=== PATIENT | female | born 1995 | race Caucasian/White ===

== ENCOUNTER → 2018-11-04 | Outpatient (CLI) | payer BC ==
--- NOTE | 2018-11-04 14:08 | Diagnostic Imaging Report ---
INDICATION: survey. TECHNIQUE: Multiple real-time grayscale images were obtained over the gravid uterus. COMPARISON: None. FINDINGS: Single live fetus in a cephalic presentation. Placenta is anterior. Amniotic fluid volume is normal. heart rate was recorded at 143 beats per minute. Cervical length is approximately 3.5 cm. survey demonstrates kidneys, bladder and stomach to be unremarkable. brain is unremarkable. There is a four-chamber heart. There is a three-vessel cord with normal insertion. spine is unremarkable. Biometrical measurements are as follows: Biparietal 4.54 cm, age 19 weeks 6 days. Head circumference 17.81 cm, age 20 weeks 2 days. Abdominal circumference 16.82 cm, age 21 weeks 6 days. Femur length 3.46 cm, age 21 weeks 0 days. Sonographic estimate age: 20 weeks 6 days. Sonographic estimated date of delivery: 03/18/2019. Estimated Weight: 408 gm (+/- 60 gm). LMP percentile: 86%. heart rate: 143 beats per minute. number: 1 of 1. IMPRESSION: Single live IUP approximately 21 weeks gestational age. The estimated date of confinement sonographically is 03/18/2019. Dictated by: Dictated on workstation # [id number]
== END ==
LOC: RAD 12:52
PROVIDERS: ATTEND Obstetrics & Gynecology
DX: Z36.89 Encounter for other specified antenatal screening (principal); Z3A.21 21 weeks gestation of pregnancy
CPT/HCPCS: 76805

== ENCOUNTER 2018-12-09 20:48 | Outpatient (CLI) | payer BC ==
[~2018-12-09] VITALS: Ht 160 cm; Wt 76.2 kg
--- NOTE | 2018-12-09 21:00 | NUR ---
BRADEN HERNANDEZ presented to unit via ambulation from ED, with c/o CRAMPING, TROUBLE GOING TO RESTROOM. BRADEN HERNANDEZ weighed, gowned, voided, and to bed. EFHM and TOCO applied, VS taken. BRADEN HERNANDEZ oriented to bed controls, call light, TV, heat, and A/C controls.
[2018-12-09 21:15] VITALS: BP 118/59
[2018-12-09 21:22] LABS: BILIRUBIN,URINE NEGATIVE (NEGATIVE); CLARITY,URINE VERY CLOUDY; COLOR,URINE YELLOW; GLUCOSE, URINE (UA) NEGATIVE (NEGATIVE); KETONES,URINE NEGATIVE (NEGATIVE); LEUKOCYTE ESTERASE ,URINE 1+ (NEGATIVE); NITRITE,URINE NEGATIVE (NEGATIVE); PH,URINE 7 (5-9); PROTEIN,URINE NEGATIVE (NEGATIVE); UROBILINOGEN,URINE 1 MG/DL (NORMAL)
[2018-12-09 21:37] LABS: AMORPHOUS SEDIMENT,UR LARGE AMOR PHOSPHATE /LPF; BACTERIA,URINE TRACE /HPF; WBC,URINE 0-2 /HPF
[2018-12-09] MEDS ORDERED: FLEET ENEMA ADULT 1 EA BTL PR ONE (21:45)
[2018-12-09] MEDS ORDERED: MAGN400O7 PO (22:05)
[2018-12-09] MEDS ORDERED: PREN-142 PO (22:05)
--- NOTE | 2018-12-09 22:15 | NUR ---
Enema given per order. Pt tolerated well. Pt up to toilet per request. Denies needing anything. Privacy offered.
--- NOTE | 2018-12-09 22:40 | NUR ---
Pt up to bathroom, continuing to try to have BM. States was "able to go a little, but it still feels like it's right there." Offered more privacy. Encouraged pt to call if needing anything.
--- NOTE | 2018-12-09 23:20 | NUR ---
Pt states feels better, was "able to get a lot out." Requesting to go home at time.
--- NOTE | 2018-12-09 23:25 | NUR ---
Discharge instructions discussed with patient. No questions or concerns voiced. Signature sheet signed, placed on chart. Pt ambulating off unit to private vehicle. No signs of distress noted.
--- NOTE | 2018-12-12 09:51 | Physician Query-Final Dx ---
JORDAN CARRILLO 12/12/18 0951: Clinic Account Progress/Dx Physician Query: please give a diagnosis and include the weeks of gestation thank you Date of Service Dec 09, 2018 at 20:48 ROSA ALCANTAR DO 12/16/18 1634: Clinic Account Progress/Dx Physician Query: Please give diagnosis ( with constipation) DIAGNOSIS: Diagnosis with constipation Progress Note: Ms. Scherer was seen as an outpatient--not physically seen by me. JORDAN Montano Dec 12, 2018 09:51 ROSA ALCANTAR DO Dec 16, 2018 16:34
== END 2018-12-09 23:25 | disposition home or self-care (01) ==
LOC: WSo 20:48 → LDRP 20:48 → WSo 23:25
PROVIDERS: ATTEND Obstetrics & Gynecology
DX: O99.619 Diseases of the digestive system complicating pregnancy, unspecified trimester (principal); K59.00 Constipation, unspecified
CPT/HCPCS: 81000; 99213

== ENCOUNTER 2019-02-28 05:57 | Outpatient (CLI) | payer BC ==
[~2019-02-28] VITALS: Ht 160 cm; Wt 79.8 kg
[~2019-02-28 05:57] MED LIST: MAGN400O7 PO; PREN-142 PO
--- NOTE | 2019-02-28 06:07 | NUR ---
BRADEN HERNANDZE presented to unit via WC from ED, accompanied by staff , with c/o PRESSURE,PT STS WATER BROKE. BRADEN HERNANDEZ weighed, gowned, voided, and to bed. EFHM and TOCO applied, VS taken. BRADEN HERNANDEZ oriented to bed controls, call light, TV, heat, and A/C controls.
[2019-02-28 06:23] VITALS: BP 121/76
--- NOTE | 2019-02-28 06:25 | NUR ---
SVE, 1 cm thick and negative amnio test. Pt denies pain and states she woke dreaming she was peeing and then found her bed wet. Pt states she didnt think the bed smelled of urine and came to hospital to check for SROM.
--- NOTE | 2019-02-28 06:32 | NUR ---
Dr Vizcaino called and report given, pt may discharge after reactive NST.
--- NOTE | 2019-02-28 06:50 | NUR ---
Pt. discharged. Up to change into own clothes. Pt. walks downstairs with no assist needed. No s/s of distress at this time.
--- NOTE | 2019-03-04 11:07 | Physician Query-Final Dx ---
JORDAN CARRILLO 03/04/19 1107: Final Diagnosis Give Final Diagnosis Please give Final Diagnosis Dr Diaz Please give a final diagnosis and include the weeks of gestation thank you MIKEY DIAZ DO 03/10/19 0815: Final Diagnosis Give Final Diagnosis 37 week IUP Uterine contractions vaginal discharge JORDAN CARRILLO Mar 04, 2019 11:07 MIKEY DIAZ DO Mar 10, 2019 08:15
== END 2019-02-28 06:50 | disposition home or self-care (01) ==
LOC: WSo 05:57 → LDRP 05:59 → WSo 06:50
PROVIDERS: ATTEND Obstetrics & Gynecology
DX: O62.9 Abnormality of forces of labor, unspecified (principal); O99.89 Other specified diseases and conditions complicating pregnancy, childbirth and the puerperium; N89.8 Other specified noninflammatory disorders of vagina; Z3A.37 37 weeks gestation of pregnancy
CPT/HCPCS: 99213

== ENCOUNTER 2019-03-16 12:54 | Outpatient (CLI) | payer BC ==
[~2019-03-16] VITALS: Ht 160 cm; Wt 78.0 kg
--- NOTE | 2019-03-16 13:00 | NUR ---
BRADEN HERNANDEZ presented to unit via ambulatory from ED, with c/o PRESSURE. BRADEN HERNANDEZ weighed, gowned, voided, and to bed. EFHM and TOCO applied, VS taken. BRADEN HERNANDEZ oriented to bed controls, call light, TV, heat, and A/C controls.
[2019-03-16 13:13] VITALS: BP 129/80
[2019-03-16 14:25] VITALS: BP 127/76
--- NOTE | 2019-03-16 14:29 | NUR ---
Text Dr Vizcaino regarding pt adms, complaints of back/abdominal pain, pelvic pressure, neg protein on dipstick, 1cm, and -3 and uterine irritability with an occasional contraction. No response from physician so called at 1446 - orders received.
[2019-03-16] MEDS ORDERED: VALA500T4 PO (15:03)
[2019-03-16] MEDS ORDERED: FERR-84 PO (15:05)
--- NOTE | 2019-03-16 15:30 | NUR ---
Discharge to home. Labor precautions given. OB outpt discharge instructions given. Verbalized understanding.
[2019-03-19] MEDS ORDERED: IBUP-844 PO (19:39)
[2019-03-19] MEDS ORDERED: ACHD5005 PO (19:39)
[2019-03-19] MEDS ORDERED: Benzocaine/Menthol TP (19:39)
[2019-03-19] MEDS ORDERED: DOCU100C37 PO (19:39)
[2019-03-19] MEDS ORDERED: DIBU30OI TOP (19:39)
== END 2019-03-16 15:30 ==
LOC: WSo 12:54 → LDRP 12:54 → WSo 15:30
PROVIDERS: ATTEND Obstetrics & Gynecology
DX: O62.2 Other uterine inertia (principal); Z3A.39 39 weeks gestation of pregnancy
CPT/HCPCS: 99214

== ENCOUNTER 2019-03-19 04:01 | Inpatient (IN) | payer BC ==
[~2019-03-19] VITALS: Ht 160 cm; Wt 78.5 kg
[2019-03-19] VITALS (61 sets, daily range): BP systolic 110–155; BP diastolic 61–94
--- NOTE | 2019-03-19 04:00 | NUR ---
BRADEN HERNANDEZ presented to unit via wc from ED, accompanied by staff and s/o , with c/o LABOR. BRADEN HERNANDEZ weighed, gowned, voided, and to bed. EFHM and TOCO applied, VS taken. BRADEN HERNANDEZ oriented to bed controls, call light, TV, heat, and A/C controls. pt up changing and supplying u/a assessments to follow per this rn.
[~2019-03-19 04:01] MED LIST changes: +FERR-84 PO; +VALA500T4 PO
--- OUTSIDE RECORDS SUMMARY | 2019-03-19 04:06 | XMS REPORT | Continuity of Care Document ---
Author Organization Unknown Address Unknown Allergies There is no data. Medications There is no data. Problems Date Dx Coded Attending Type Code Diagnosis Diagnosed By 03/02/2014 ROYAL LARA APRN V74.5 STD SCREEN 03/02/2014 PRESTON RASMUSSEN DO V74.5 STD SCREEN Procedures Code [place] [id number] [facility] 03/02/2014 39273 HIV ([facility]) 03/02/2014 68892 GC/CHLAM URINE (STATE) 03/02/2014 GC/CHLAM GC/CHLAMYDIA PROBE/URINE 05/07/2014 Results There is no data. Encounters ACCT No. Visit Date/Time Discharge Status Pt. Type Provider Facility Loc./Unit Complaint [id number] 05/07/2014 09:37:00 05/07/2014 23:59:59 CLS Outpatient PRESTON RASMUSSEN DO [id number] 03/02/2014 10:28:00 03/02/2014 23:59:59 CLS Outpatient ROYAL LARA APRN
[2019-03-19] MEDS ORDERED: D5 LR IV SOLUTION 1,000 ML IV ONE (04:30)
[2019-03-19] MEDS ORDERED: HYDROmorphone 2 MG/ML VIAL (DILAUDID) ONE (04:50)
[2019-03-19] MEDS: D5 LR IV SOLUTION 1,000 ML IV SCH ×2 (05:00→12:51)
[2019-03-19] MEDS ORDERED: HYDROmorphone 2 MG/ML VIAL (DILAUDID) IV ONE (06:00)
[2019-03-19 06:15] LABS: BASOPHILS % (AUTO) 0 % (0-10); EOSINOPHILS # (AUTO) 0.1 10^3/uL (0.0-0.3); EOSINOPHILS % (AUTO) 1 % (0-10); HEMATOCRIT 35 % (35-52); HEMOGLOBIN 12.6 G/DL (11.5-16.0); LYMPHOCYTES # (AUTO) 2.2 X 10^3 (1.0-4.0); LYMPHOCYTES % (AUTO) 13 % (12-44); MEAN CORPUSCULAR HEMOGLOBIN 31 PG (25-34); MEAN CORPUSCULAR HGB CONC 36 G/DL (32-36); MEAN CORPUSCULAR VOLUME 86 FL (80-99); MEAN PLATELET VOLUME 13.7 FL (7.4-10.4); MONOCYTES # (AUTO) 1.4 X 10^3 (0.0-1.0); MONOCYTES % (AUTO) 8 % (0-12); NEUTROPHILS # (AUTO) 12.9 X 10^3 (1.8-7.8); NEUTROPHILS % (AUTO) 78 % (42-75); PLATELET COUNT 183 10^3/uL (130-400); RED CELL DISTRIBUTION WIDTH 13.6 % (10.0-14.5); WHITE BLOOD COUNT 16.6 10^3/uL (4.3-11.0)
--- NOTE | 2019-03-19 08:07 | History & Physical-OB ---
OB - Chief Complaint & HPI Date/Time Date of Admission: Date of Admission: Mar 19, 2019 at 04:01 Date seen by a Provider: Mar 19, 2019 Time Seen by a Provider: 08:05 Chief Complaint/History Hx : 1 Hx Para: 0 Expected Date of Delivery: Mar 21, 2019 Gestational Age in Weeks: 39 Gestational Age in Days: 5 Indication for induction: maternal discomfort Admission Nurse Assessment Rev: Yes History of Labs A pos Antibody neg RI RPR NR HBsAg NR HIV NR GC neg GBS neg Allergies and Home Medications Allergies Coded Allergies: No Known Drug Allergies (Unverified , 03/19/16) Home Medications Ferrous Sulfate 325 Mg Tablet, 325 MG PO DAILY, (Reported) Vit No.124/Iron/FA 1 Each Tablet, 1 EACH PO DAILY, (Reported) Valacyclovir HCl 500 Mg Tablet, 500 MG PO BID, (Reported) Patient Home Medication List Home Medication List Reviewed: Yes OB - History Hx of Present Care: Yes Ultrasounds: Normal mid trimester US Obstetrical Complications: None Medical Complications: None Delivery History Hx Blood Disorders: No Adverse Rxn to Tranfusion: No Patient Past Medical History n/a Social History/Family History HIV/AIDS: No Sexually Transmitted Disease: Yes (HX CHLAMYDIA, HPV, HSV ) Alcohol Use: Denies Use Recreational Drug Use: No Immunizations Hepatitis A: Yes Hepatitis B: Yes OB - Admission Exam Physical Exam Vitals: Vital Signs 03/19/19 03/19/19 05:00 06:00 Temp 98.4 Pulse 86 Resp 18 B/P (MAP) 114/74 (87) HEENT: NCAT Heart: Rhythm Normal Lungs: Clear Abdomen: Gravid Extremities: Normal Reflexes: Normal Cervical Dilatation: 3cm Effacement: 75% Station: -1 Membranes: Intact Heart Rate: 130's Accelerations: Accelerations Present Decelerations: No Decelerations Short Term Variability: Present Fern Cutter Variability: Average (6-25) Contractions on Admission: < 5 Minutes Apart Labs Laboratory Tests Test 03/19/19 05:14 Range/Units White Blood Count 16.6 H 4.3-11.0 10^3/uL Red Blood Count 4.01 L 4.35-5.85 10^6/uL Hemoglobin 12.6 11.5-16.0 G/DL Hematocrit 35 35-52 % Mean Corpuscular Volume 86 80-99 FL Mean Corpuscular Hemoglobin 31 25-34 PG Mean Corpuscular Hemoglobin Concent 36 32-36 G/DL Red Cell Distribution Width 13.6 10.0-14.5 % Platelet Count 183 130-400 10^3/uL Mean Platelet Volume 13.7 H 7.4-10.4 FL Neutrophils (%) (Auto) 78 H 42-75 % Lymphocytes (%) (Auto) 13 12-44 % Monocytes (%) (Auto) 8 0-12 % Eosinophils (%) (Auto) 1 0-10 % Basophils (%) (Auto) 0 0-10 % Neutrophils # (Auto) 12.9 H 1.8-7.8 X 10^3 Lymphocytes # (Auto) 2.2 1.0-4.0 X 10^3 Monocytes # (Auto) 1.4 H 0.0-1.0 X 10^3 Eosinophils # (Auto) 0.1 0.0-0.3 10^3/uL Basophils # (Auto) 0.0 0.0-0.1 10^3/uL OB - Assessment/Plan/Diagnosis Assessment Assessment: induction of labor Admission Dx 23 yo @ 39 weeks Elective induction of labor GBS neg Admission Status: Inpatient Order (span 2 midnights) Reason for Inpatient Admission: 23 yo @ 39 weeks Elective induction of labor GBS neg Plan Induction Method: MIKEY DIXON DO Mar 19, 2019 08:07
[2019-03-19] MEDS ORDERED: SUFENTA 0.6MCG/ML BUPIVA 0.125 100 ML ONE (08:30)
--- NOTE | 2019-03-19 08:32 | NUR ---
Anesthesia notified of epidural request
--- NOTE | 2019-03-19 08:55 | NUR ---
Yaya Romero CRNA here for epidural placement. Procedure explained, consent reviewed and signed by anesthesia. Questions answered to patient's satisfaction. Time out taken to verify correct patient/procedure. Patient up to side of bed, assisted into sitting position. Betadine prep done x3 and sterile drape applied. Local done, see anesthesia record. Test dose given, see anesthesia record for drug and dosage. Epidural catheter secured in place. Epidural placement complete. Assisted back into bed, monitors adjusted. Epidural dosed, see anesthesia record. Epidural of Sufenta/Bupvicaine @12cc/hr stated per pump. Patient tolerated procedure well.
[2019-03-19] MEDS ORDERED: fentaNYL INJECTION 100 MCG/2 ML AMP ONE (09:19)
[2019-03-19] MEDS ORDERED: OXYTOCIN/NORMAL SALINE 500 ML IV ONE (10:44)
[2019-03-19] MEDS ORDERED: OXYTOCIN/NORMAL SALINE 500 ML IV SCH ×2 (12:32→19:17)
[2019-03-19] MEDS ORDERED: SUFENTA 0.6MCG/ML BUPIVA 0.125 100 ML INJ PRN (12:45)
[2019-03-19] MEDS ORDERED: fentaNYL INJECTION 100 MCG/2 ML AMP IJ ONE (12:45)
[2019-03-19] MEDS ORDERED: LACTATED RINGERS 1,000 ML IV ONE (14:51)
[2019-03-19] MEDS ORDERED: NALOXONE 0.4 MG/ML 1 ML (NARCAN) VIAL IV PRN (15:00)
[2019-03-19] MEDS ORDERED: CATHETER FLUSH 10 ML SYR IV PRN (15:00)
[2019-03-19] MEDS ORDERED: ONDANSETRON 4 MG/2 ML (SDV) Z0FRAN IV PRN (15:00)
--- NOTE | 2019-03-19 16:45 | NUR ---
Report to Pacheco Foote RN
[2019-03-19] MEDS ORDERED: LIDOCAINE/EPI 2% 1:200,00 (XYLOCAINE) 10 ML VIAL ONE (18:11)
[2019-03-19] MEDS ORDERED: IBUPROFEN 600 MG (MOTRIN) TAB PO ONE (19:00)
[2019-03-19] MEDS: IBUPROFEN 600 MG (MOTRIN) TAB PO SCH (19:06)
--- NOTE | 2019-03-19 19:20 | NUR ---
Report to Edmar Phillips RN.
--- NOTE | 2019-03-19 19:25 | OB Labor & Delivery Record ---
L&D History Date of Service Date of Service: Mar 19, 2019 History Expected Date of Delivery: Mar 21, 2019 Gestational Age in Weeks: 39 Hx : 1 Hx Para: 0 Complications Events: Routine care Operative Indications (Cesarea: N/A-Vaginal Delivery Intrapartal Events: None, Ineffective Pushing L&D Stage1 Stage One Onset of Labor - Date: Mar 19, 2019 Monitors and Tracing Monitor Mode: External Heart Rate: 135 Monitor Accelerations: Uniform Monitor Decelerations: Early Station: -1 Residential Variability: Average (6-10) Short Term Variability: Present Presentation: Vertex Vital Signs VS - Last 72 Hours, by Label 03/19/19 03/19/19 03/19/19 03/19/19 05:00 06:00 07:55 09:02 Temp 98.4 96.9 Pulse 86 90 95 Resp 18 18 20 B/P (MAP) 114/74 (87) 126/75 (92) 155/87 (109) Pulse Ox 100 O2 Delivery Room Air 03/19/19 03/19/19 03/19/19 03/19/19 09:05 09:08 09:11 09:14 Pulse 98 94 88 90 Resp 20 20 20 20 B/P (MAP) 137/86 (103) 121/72 (88) 134/79 (97) 126/75 (92) Pulse Ox 99 99 98 O2 Delivery Room Air Room Air Room Air Room Air 03/19/19 03/19/19 03/19/19 03/19/19 09:17 09:21 09:24 09:27 Pulse 85 88 87 94 Resp 20 20 20 20 B/P (MAP) 133/83 (100) 128/78 (95) 124/76 (92) 126/75 (92) Pulse Ox 98 99 99 O2 Delivery Room Air Room Air Room Air Room Air 03/19/19 03/19/19 03/19/19 03/19/19 09:30 09:33 09:36 09:39 Temp 97.0 Pulse 91 91 94 90 Resp 20 20 20 20 B/P (MAP) 125/72 (89) 121/70 (87) 125/72 (89) 119/71 (87) Pulse Ox 99 99 98 O2 Delivery Room Air Room Air Room Air Room Air 03/19/19 03/19/19 03/19/1919/19 09:42 09:45 09:54 10:00 Pulse 86 87 89 86 Resp 20 20 20 20 B/P (MAP) 122/71 (88) 122/70 (87) 128/78 (95) 126/73 (90) Pulse Ox 98 99 99 O2 Delivery Room Air Room Air Room Air Room Air 03/19/19 03/19/19 03/19/19 03/19/19 10:05 10:10 10:15 10:20 Pulse 89 85 80 82 Resp 20 20 20 20 B/P (MAP) 126/73 (90) 114/74 (87) 113/69 (84) 118/66 (83) Pulse Ox 99 99 98 98 O2 Delivery Room Air Room Air Room Air Room Air 03/19/19 03/19/19 03/19/19 03/19/19 10:25 10:30 10:45 11:00 Temp 97.2 Pulse 81 79 82 83 Resp 20 20 20 20 B/P (MAP) 120/68 (85) 120/67 (84) 119/71 (87) 128/75 (92) Pulse Ox 97 97 93 O2 Delivery Room Air Room Air Room Air Room Air 03/19/19 03/19/19 03/19/19 03/19/19 11:15 11:30 11:45 12:00 Temp 98.1 Pulse 83 89 81 80 Resp 20 20 20 20 B/P (MAP) 123/74 (90) 125/67 (86) 114/61 (78) 135/77 (96) O2 Delivery Room Air Room Air Room Air Room Air 03/19/19 03/19/19 03/19/19 03/19/19 12:15 12:30 12:45 13:00 Pulse 80 79 82 84 Resp 20 20 20 20 B/P (MAP) 110/67 (81) 124/69 (87) 124/77 (93) 133/84 (100) O2 Delivery Room Air Room Air Room Air Room Air 03/19/19 03/19/19 03/19/19 03/19/19 13:15 13:30 13:45 14:15 Pulse 79 85 93 94 Resp 20 20 20 20 B/P (MAP) 124/75 (91) 119/79 (92) 111/68 (82) 155/76 (102) O2 Delivery Room Air Room Air Room Air Room Air 03/19/19 03/19/19 03/19/19 03/19/19 14:30 14:45 15:00 15:15 Pulse 85 88 86 97 Resp 20 20 20 20 B/P (MAP) 123/71 (88) 115/70 (85) 120/68 (85) 118/74 (89) O2 Delivery Room Air Room Air Room Air Room Air 03/19/19 03/19/19 03/19/19 03/19/19 15:30 15:45 16:00 16:15 Temp 98.2 Pulse 86 110 86 96 Resp 20 20 20 20 B/P (MAP) 117/70 (86) 135/83 (100) 122/73 (89) 130/79 (96) O2 Delivery Room Air Room Air Room Air Room Air 03/19/19 16:30 Pulse 90 Resp 20 B/P (MAP) 141/76 (97) O2 Delivery Room Air Rupture of Membranes Spontaneous Ruture of Membrane: No Amniotic Membrane Rupture Time: 08 Amniotic Membrane Fluid Desc.: Clear Vaginal Bleeding Description: Normal Show Induction/Anesthesia Epidural Cath Placement - Time: 912 Progress/Notes AROM performed this am followed by pitocin augmentation and epidural placement. After position changes, patient did progress to complete and +1 station L&D Stage2 Stage Two Stage II Date: Mar 19, 2019 Monitors and Tracing Monitor Mode: External Heart Rate: 135 Monitor Accelerations: Uniform Monitor Decelerations: Variable Behavior Management Specialist Variability: Average (6-10) Short Term Variability: Present Position: Right Occiput Anterior Presentation: Vertex Cord Descript/Complications Cord Vessel Description: 3 Vessels Complications Despite maternal efforts and significant discomfort despite epidural, she progressed vertex to +2-3 station at which point no further progression was being made and she was inadvertantly pushing whether laly or not. Due to ineffective pushing decision was made with the patient to assist with VAVD. Risk briefly reviewed. Kiwi vacuum cup placed between ant and post fontanelles, 500mmHG applied by handpiece with the next palpated contraction and with gentle downward traction and extension the infants head is delivered over RML. The suction is then released. Delivery Type Infant Delivery Method: Low Vacuum Extraction Anterior Shoulder: Left Episiotomy/Perineal Laceration Laceraction(s)/Extensions: Yes Episiotomy Description: Right Mediolateral Degree (describe repair) RML repaired using 3-0 and 2-0 vicryl suture in usual fashion. Condition of Infant Delivery 1 minute Comment: 8 5 minute Comment: 9 Notes Live male weight 7lbs 15 oz. Condition of Condition of : Living Exam: No Observed Abnormalities Resuscitation Resuscitation: N/A - Spontaneous Resp L&D Stage3 Stage Three Stage III Date: Mar 19, 2019 Pictocin Pitocin Administration mu/min: 2 Pitocin ml/hr: 2 Pitocin Administration Comment: 30 mu wide open at delivery of placenta Placenta Delivery Placenta Delivery: Spontaneous Delivery Summary Summary Estimated blood loss (mL): 400 Attending at delivery: Manjit Diaz DO Condition of Delivery Examined: Cervix Examined, Uterus Explored Post Hemorrhage: No Condition of Mother stable Condition of (s) stable MANJIT DIAZ DO Mar 19, 2019 7:25 pm
[2019-03-19] MEDS ORDERED: DIBUCAINE (NUPERCAINAL) 1% OINT 30 GM TOP PRN (19:30)
[2019-03-19] MEDS ORDERED: TETANUS,DIPTH,PERTUSS P/F (BOOSTRIX) 0.5 ML VIAL IM ONE (19:30)
[2019-03-19] MEDS ORDERED: BENZOCAINE/MENTHOL (DERMOPLAST) 56 ML CAN TP PRN (19:30)
[2019-03-19] MEDS ORDERED: WITCH HAZEL(TUCKS) 40 EA JAR TOP PRN (19:30)
[2019-03-19] MEDS ORDERED: MEASLES,MUMPS,RUBELLA 1 EA INJ SQ ONE (19:30)
--- NOTE | 2019-03-19 19:36 | Discharge Inst-Women's Service ---
Discharge Inst-Women's Serv Depart Medication/Instructions New, Converted or Re-Newed RX: RX on Chart Final Diagnosis PPD 2 VAVD Consults/Follow Up Additional Follow Up: Yes Orders/Referrals Dr. Diaz in 6 weeks Activity Activity: Activity as Tolerated Driving Instructions: No Driving for 1 Week NO SMOKING: NO SMOKING Nothing Inside Vagina: No Douching, No Study [place], No Tampons Diet Discharge Diet: No Restrictions Symptoms to Report to : Bleeding Excessive, Pain Increased, Fever Over 101 Degrees F, Vaginal Bleeding Increase, Questions/Concerns For Any Problems or Questions: Contact Your Physician MIKEY DIAZ DO Mar 19, 2019 7:36 pm
[2019-03-19] MEDS ORDERED: DIBU30OI TOP (19:39)
[2019-03-19] MEDS ORDERED: IBUP-844 PO (19:39)
[2019-03-19] MEDS ORDERED: Benzocaine/Menthol TP (19:39)
[2019-03-19] MEDS ORDERED: DOCU100C37 PO (19:39)
[2019-03-19] MEDS ORDERED: ACHD5005 PO (19:39)
[2019-03-19] MEDS: CATHETER FLUSH 10 ML SYR IV SCH (19:44)
--- NOTE | 2019-03-19 20:20 | NUR ---
Pt ambulates to bathroom standby, pericare pads changed, pt voids first time after delivery without difficulty, pt to and transferred to pp room 308, this rn remains taking care of pt. info packet explained, ice diaper provided. education on tucks and dermoplast, understanding voiced, will cont to monitor.
[2019-03-19] MEDS: HYDROcodone/APAP 5 MG/325 MG (LORTAB) TAB PO PRN (20:29)
[2019-03-19] MEDS: DOCUSATE SODIUM 100 MG (COLACE) CAP PO SCH (20:29)
[2019-03-19] MEDS ORDERED: CATHETER FLUSH 10 ML SYR IV SCH (22:00)
[2019-03-20 00:21] VITALS: BP 117/76
[2019-03-20] MEDS: IBUPROFEN 600 MG (MOTRIN) TAB PO SCH ×4 (00:21→18:08)
[2019-03-20 04:20] VITALS: BP 123/77
[2019-03-20 05:51] LABS: BASOPHILS % (AUTO) 0 % (0-10); EOSINOPHILS # (AUTO) 0.1 10^3/uL (0.0-0.3); EOSINOPHILS % (AUTO) 1 % (0-10); HEMATOCRIT 29 % (35-52); HEMOGLOBIN 10.4 G/DL (11.5-16.0); LYMPHOCYTES # (AUTO) 3.4 X 10^3 (1.0-4.0); LYMPHOCYTES % (AUTO) 16 % (12-44); MEAN CORPUSCULAR HEMOGLOBIN 32 PG (25-34); MEAN CORPUSCULAR HGB CONC 36 G/DL (32-36); MEAN CORPUSCULAR VOLUME 87 FL (80-99); MEAN PLATELET VOLUME 13.1 FL (7.4-10.4); MONOCYTES # (AUTO) 1.9 X 10^3 (0.0-1.0); MONOCYTES % (AUTO) 9 % (0-12); NEUTROPHILS # (AUTO) 15.6 X 10^3 (1.8-7.8); NEUTROPHILS % (AUTO) 74 % (42-75); PLATELET COUNT 191 10^3/uL (130-400); RED CELL DISTRIBUTION WIDTH 13.9 % (10.0-14.5)
--- NOTE | 2019-03-20 07:36 | Postpartum Progress Note ---
Note Note Day # 1 Subjective: Patient is without complaints. Ambulating, voiding. Tolerating a regular diet without nausea or vomiting. Normal lochia. Pain is well controlled with oral pain medications. Objective: Physical Exam: General - Alert and oriented, no apparent distress Abdomen - Soft, appropriately tender to palpation, non-distended, fundus firm at umbilicus Extremities - no edema, negative Chuck's bilaterally Assessment: PPD 1 VAVD Acute blood loss anemia Plan: Routine care. Encourage breast feeding. Encourage ambulation. Ferrous sulfate supplementation. Plan for discharge tomorrow Vitals - Labs Vital Signs - I&O Vital Signs Date Time Temp Pulse Resp B/P (MAP) Pulse Ox O2 Delivery O2 Flow Rate FiO2 03/20/19 04:20 98.3 71 18 123/77 (92) 99 Room Air 03/20/19 00:21 98.9 89 18 117/76 (90) 97 Room Air 03/19/19 20:00 98.4 88 18 133/75 (94) Room Air 03/19/19 19:45 90 18 131/77 (95) Room Air 03/19/19 19:30 84 18 133/78 (96) Room Air 03/19/19 19:15 92 18 132/94 (107) Room Air 03/19/19 19:06 98.5 03/19/19 19:00 102 20 138/83 (101) Room Air 03/19/19 18:47 97.9 102 20 133/77 (95) Room Air 03/19/19 18:30 97.4 89 20 133/63 (86) Room Air 03/19/19 18:00 111 20 142/85 (104) Room Air 03/19/19 17:45 127 20 147/94 (111) Room Air 03/19/19 17:30 99.0 104 20 145/93 (110) Room Air 03/19/19 17:15 98 20 126/74 (91) Room Air 03/19/19 17:00 93 20 123/65 (84) Room Air 03/19/19 16:45 88 20 138/87 (104) Room Air 03/19/19 16:30 90 20 141/76 (97) Room Air 03/19/19 16:15 96 20 130/79 (96) Room Air 03/19/19 16:00 86 20 122/73 (89) Room Air 03/19/19 15:45 98.2 110 20 135/83 (100) Room Air 03/19/19 15:30 86 20 117/70 (86) Room Air 03/19/19 15:15 97 20 118/74 (89) Room Air 03/19/19 15:00 86 20 120/68 (85) Room Air 03/19/19 14:45 88 20 115/70 (85) Room Air 03/19/19 14:30 85 20 123/71 (88) Room Air 03/19/19 14:15 94 20 155/76 (102) Room Air 03/19/19 13:45 93 20 111/68 (82) Room Air 03/19/19 13:30 85 20 119/79 (92) Room Air 03/19/19 13:15 79 20 124/75 (91) Room Air 03/19/19 13:00 84 20 133/84 (100) Room Air 03/19/19 12:45 82 20 124/77 (93) Room Air 03/19/19 12:30 79 20 124/69 (87) Room Air 03/19/19 12:15 80 20 110/67 (81) Room Air 03/19/19 12:00 98.1 80 20 135/77 (96) Room Air 03/19/19 11:45 81 20 114/61 (78) Room Air 03/19/19 11:30 89 20 125/67 (86) Room Air 03/19/19 11:15 83 20 123/74 (90) Room Air 03/19/19 11:00 83 20 128/75 (92) Room Air 03/19/19 10:45 97.2 82 20 119/71 (87) 93 Room Air 03/19/19 10:30 79 20 120/67 (84) 97 Room Air 03/19/19 10:25 81 20 120/68 (85) 97 Room Air 03/19/19 10:20 82 20 118/66 (83) 98 Room Air 03/19/19 10:15 80 20 113/69 (84) 98 Room Air 03/19/19 10:10 85 20 114/74 (87) 99 Room Air 03/19/19 10:05 89 20 126/73 (90) 99 Room Air 03/19/19 10:00 86 20 126/73 (90) 99 Room Air 03/19/19 09:54 89 20 128/78 (95) 99 Room Air 03/19/19 09:45 87 20 122/70 (87) Room Air 03/19/19 09:42 86 20 122/71 (88) 98 Room Air 03/19/19 09:39 90 20 119/71 (87) 98 Room Air 03/19/19 09:36 94 20 125/72 (89) 99 Room Air 03/19/19 09:33 97.0 91 20 121/70 (87) 99 Room Air 03/19/19 09:30 91 20 125/72 (89) Room Air 03/19/19 09:27 94 20 126/75 (92) 99 Room Air 03/19/19 09:24 87 20 124/76 (92) Room Air 03/19/19 09:21 88 20 128/78 (95) 99 Room Air 03/19/19 09:17 85 20 133/83 (100) 98 Room Air 03/19/19 09:14 90 20 126/75 (92) 98 Room Air 03/19/19 09:11 88 20 134/79 (97) 99 Room Air 03/19/19 09:08 94 20 121/72 (88) Room Air 03/19/19 09:05 98 20 137/86 (103) 99 Room Air 03/19/19 09:02 95 20 155/87 (109) 100 Room Air 03/19/19 07:55 96.9 90 18 126/75 (92) I & O 03/20/19 07:00 Intake Total 2600 ml Balance 2600 ml Labs Laboratory Tests 03/20/19 05:40: White Blood Count 21.0H, Red Blood Count 3.30L, Hemoglobin 10.4L, Hematocrit 29L , Mean Corpuscular Volume 87, Mean Corpuscular Hemoglobin 32, Mean Corpuscular Hemoglobin Concent 36, Red Cell Distribution Width 13.9, Platelet Count 191, Mean Platelet Volume 13.1H, Neutrophils (%) (Auto) 74, Lymphocytes (%) (Auto) 16, Monocytes (%) (Auto) 9, Eosinophils (%) (Auto) 1, Basophils (%) (Auto) 0, Neutrophils # (Auto) 15.6H, Lymphocytes # (Auto) 3.4, Monocytes # (Auto) 1.9H, Eosinophils # (Auto) 0.1, Basophils # (Auto) 0.0 MIKEY DIAZ DO Mar 20, 2019 07:36
[2019-03-20] MEDS: PRENATAL VITAMIN 1 EA TAB PO SCH (08:25)
[2019-03-20] MEDS: DOCUSATE SODIUM 100 MG (COLACE) CAP PO SCH ×2 (08:25→20:58)
[2019-03-20] MEDS: FERROUS SULF 325 MG (IRON) TAB PO SCH (08:25)
[2019-03-20 08:27] VITALS: BP 116/60
--- NOTE | 2019-03-20 08:30 | NUR ---
To room for pt assessment. Pt S.O. asleep on couch with infant beside him. Education provided on cosleeping and dangers involved. Offered to move to open crib next to MOB. S.O. refuses, states he will stay awake. S.O. remains awake throughout assessment.
[2019-03-20 12:21] VITALS: BP 132/86
[2019-03-20] MEDS: HYDROcodone/APAP 5 MG/325 MG (LORTAB) TAB PO PRN (13:54)
--- NOTE | 2019-03-20 14:44 | Anesthesia-Regional Post-Op ---
Regional Patient Condition Mental Status: Alert, Oriented x3 Circulation: Same as Pre-Op Headache: Absent Sensation: Full Recovery Motor Block: Absent Post Op Complications Complications None Follow Up Care/Instructions Patient Instructions None needed. Anesthesia/Patient Condition Patient is doing well, no complaints, stable vital signs, no apparent adverse anesthesia problems. NATHEN READ DO Mar 20, 2019 14:43
[2019-03-20 18:07] VITALS: BP 126/86
[2019-03-21] MEDS: IBUPROFEN 600 MG (MOTRIN) TAB PO SCH ×3 (00:16→12:41)
[2019-03-21 00:17] VITALS: BP 122/85
[2019-03-21 05:58] VITALS: BP 126/82
[2019-03-21 08:30] VITALS: BP 120/73
[2019-03-21] MEDS: DOCUSATE SODIUM 100 MG (COLACE) CAP PO SCH (08:30)
[2019-03-21] MEDS: PRENATAL VITAMIN 1 EA TAB PO SCH (08:30)
[2019-03-21] MEDS: FERROUS SULF 325 MG (IRON) TAB PO SCH (08:30)
--- NOTE | 2019-03-21 08:30 | NUR ---
AM shift assessment completed and vital signs obtained, see interventions. Plan of care reviewed with patient. Patient verbalizes understanding and questions answered. Scheduled PNV, Colace, and Iron PO given.
--- NOTE | 2019-03-21 09:15 | NUR ---
Dr. Vizcaino here to see patient. New orders received.
--- NOTE | 2019-03-21 09:17 | Postpartum Progress Note ---
Note Note Day # 2 Subjective: Patient is without complaints. Ambulating, voiding. Tolerating a regular diet without nausea or vomiting. Normal lochia. Pain is well controlled with oral pain medications. Objective: Physical Exam: General - Alert and oriented, no apparent distress Abdomen - Soft, appropriately tender to palpation, non-distended, fundus firm at umbilicus Extremities - no edema, negative Chuck's bilaterally Assessment: PPD 2 VAVD Plan: Routine care. Encourage breast feeding. Encourage ambulation. Ferrous sulfate supplementation. Plan for discharge today Vitals - Labs Vital Signs - I&O Vital Signs Date Time Temp Pulse Resp B/P (MAP) Pulse Ox O2 Delivery O2 Flow Rate FiO2 03/21/19 05:58 97.8 81 18 126/82 (97) 96 Room Air 03/21/19 00:17 98.0 76 16 122/85 (97) 96 Room Air 03/20/19 18:07 98.9 93 18 126/86 (99) Room Air 03/20/19 12:21 99.2 81 18 132/86 (101) Room Air MIKEY DIAZ DO Mar 21, 2019 09:17
--- NOTE | 2019-03-21 11:37 | NUR ---
Discharge instructions and medications reviewed with patient both written and verbally. Patient verbalizes understanding and questions answered. Written prescriptions given to patient.
--- NOTE | 2019-03-21 13:45 | NUR ---
Patient discharged at this time and accompanied down to awaiting private vehicle by Evan Joaquin RN. No signs or symptoms of distress noted.
== END 2019-03-21 13:45 | disposition home or self-care (01) | DRG 806 ==
LOC: LDRP 04:01
PROVIDERS: ADMIT Obstetrics & Gynecology; ATTEND Obstetrics & Gynecology
PROC: 10D07Z6 Extraction of Products of Conception, Vacuum, Via Natural or Artificial Opening (ICD-10-PCS; principal; 2019-03-19)
PROC: 0W8NXZZ Division of Female Perineum, External Approach (ICD-10-PCS; 2019-03-19)
PROC: 10907ZC Drainage of Amniotic Fluid, Therapeutic from Products of Conception, Via Natural or Artificial Opening (ICD-10-PCS; 2019-03-19)
DX: O98.32 Other infections with a predominantly sexual mode of transmission complicating childbirth (principal); O62.2 Other uterine inertia; O90.81 Anemia of the puerperium; D62 Acute posthemorrhagic anemia; O99.334 Smoking (tobacco) complicating childbirth; F17.210 Nicotine dependence, cigarettes, uncomplicated; A60.09 Herpesviral infection of other urogenital tract; Z3A.39 39 weeks gestation of pregnancy; Z37.0 Single live birth
CPT/HCPCS: 36415; 85025; 86850; 86900; 86901; 99212

== ENCOUNTER → 2020-08-25 | Outpatient (CLI) | payer BC ==
[~2020-08-25] MED LIST changes: +ACHD5005 PO; +Benzocaine/Menthol TP; +DIBU30OI TOP; +DOCU100C37 PO; +IBUP-844 PO
--- NOTE | 2020-08-25 16:53 | Diagnostic Imaging Report ---
INDICATION: Anatomy. TECHNIQUE: Multiple real-time grayscale images were obtained over the gravid uterus. COMPARISON: None. FINDINGS: A single live intrauterine gestation is visualized in variable presentation. The amniotic fluid index measures 12.6 cm. The placenta is posterior/fundal and not low-lying. heart tones are 142 bpm. The cervix is closed with a cervical length measuring 2.8 cm. The kidneys, bladder, stomach, brain, four-chamber heart, three-vessel cord, spine, and cord insertion are all visualized and have a normal appearance. The facial structures are visualized without acute abnormalities. Biometrical measurements are as follows: Biparietal 4.60 cm, age 20 weeks 0 days. Head circumference 17.34 cm, age 20 weeks 0 days. Abdominal circumference 15.97 cm, age 20 weeks 1 days. Femur length 3.05 cm, age 19 weeks 4 days. Sonographic estimate age: 20 weeks 2 days. Sonographic estimated date of delivery: 01/10/2021. Estimated Weight: 341 gm (+/- 50 gm). LMP percentile: 42%. heart rate: 142 beats per minute. number: 1 of 1. IMPRESSION: 1. Single live intrauterine gestation measuring 20 weeks 2 days with an estimated due date of 01/10/2021. These are concordant with the clinical dates. 2. No anatomic abnormalities are visualized on this exam. Dictated by: Dictated on workstation # [id number]
== END ==
LOC: RAD 09:43
PROVIDERS: ATTEND Obstetrics & Gynecology
DX: Z34.92 Encounter for supervision of normal pregnancy, unspecified, second trimester (principal); Z3A.20 20 weeks gestation of pregnancy
CPT/HCPCS: 76805

== ENCOUNTER 2021-01-02 19:37 | Inpatient (IN) | payer BC ==
[~2021-01-02] VITALS: Ht 160 cm; Wt 77.1 kg
[2021-01-02 20:00] VITALS: BP 124/78
[2021-01-02] MEDS ORDERED: D5 LR IV SOLUTION 1,000 ML IV ONE (20:10)
[2021-01-02] MEDS ORDERED: MINERAL OIL CONCENTRATE 99.9% 15 ML UDC TOP PRN (20:15)
[2021-01-02 20:30] VITALS: BP 119/75
[2021-01-02 20:44] LABS: BASOPHILS # (AUTO) 0.1 10^3/uL (0.0-0.1); BASOPHILS % (AUTO) 0 % (0-10); EOSINOPHILS # (AUTO) 0.1 10^3/uL (0.0-0.3); EOSINOPHILS % (AUTO) 1 % (0-10); HEMATOCRIT 33 % (35-52); HEMOGLOBIN 11.6 g/dL (11.5-16.0); LYMPHOCYTES # (AUTO) 2.9 10^3/uL (1.0-4.0); LYMPHOCYTES % (AUTO) 21 % (12-44); MEAN CORPUSCULAR HEMOGLOBIN 30 pg (25-34); MEAN CORPUSCULAR HGB CONC 36 g/dL (32-36); MEAN CORPUSCULAR VOLUME 85 fL (80-99); MEAN PLATELET VOLUME 13.3 fL (9.0-12.2); MONOCYTES # (AUTO) 1.3 10^3/uL (0.0-1.0); MONOCYTES % (AUTO) 9 % (0-12); NEUTROPHILS # (AUTO) 9.5 10^3/uL (1.8-7.8); NEUTROPHILS % (AUTO) 69 % (42-75); PLATELET COUNT 238 10^3/uL (130-400); WHITE BLOOD COUNT 13.9 10^3/uL (4.3-11.0)
[2021-01-02] MEDS: D5 LR IV SOLUTION 1,000 ML IV SCH (21:11)
[2021-01-02 21:19] LABS: BILIRUBIN,URINE NEGATIVE (NEGATIVE); CLARITY,URINE CLEAR; COLOR,URINE YELLOW; GLUCOSE, URINE (UA) NEGATIVE (NEGATIVE); KETONES,URINE NEGATIVE (NEGATIVE); LEUKOCYTE ESTERASE ,URINE NEGATIVE (NEGATIVE); NITRITE,URINE NEGATIVE (NEGATIVE); PROTEIN,URINE NEGATIVE (NEGATIVE)
[2021-01-02 21:25] LABS: AMORPHOUS SEDIMENT,UR FEW AMOR PHOSPHATE /LPF; BACTERIA,URINE TRACE /HPF; SQUAMOUS EPITHELIAL CELL,UR 0-2 /HPF
[2021-01-02] MEDS ORDERED: CATHETER FLUSH 10 ML SYR IV SCH (22:00)
[2021-01-03] VITALS (58 sets, daily range): BP systolic 97–140; BP diastolic 55–87
[2021-01-03] MEDS ORDERED: HYDROmorphone 2 MG/ML VIAL (DILAUDID) ONE (00:16)
[2021-01-03] MEDS ORDERED: HYDROmorphone 2 MG/ML VIAL (DILAUDID) IV ONE (00:26)
[2021-01-03] MEDS: D5 LR IV SOLUTION 1,000 ML IV SCH ×2 (01:32→08:41)
--- NOTE | 2021-01-03 07:17 | History & Physical-OB ---
OB - Chief Complaint & HPI Date/Time Date of Admission: Date of Admission: Jan 02, 2021 at 19:37 Date seen by a Provider: Jan 03, 2021 Time Seen by a Provider: 07:15 Chief Complaint/History OB-Reason for Admission/Chief: Induction of Labor Hx : 2 Hx Para: 1 Expected Date of Delivery: Jan 10, 2021 Gestational Age in Weeks: 38 Gestational Age in Days: 6 Indication for induction: maternal discomfort Admission Nurse Assessment Rev: Yes History of Labs A pos GBS neg Allergies and Home Medications Allergies Coded Allergies: No Known Drug Allergies (Unverified , 03/19/16) Home Medications Dibucaine 30 Gm Oint, 0 GM TOP UD PRN for PAIN- SEE INSTRUCTIONS Prescribed by: MIKEY DIAZ on 03/19/191938 Docusate Sodium 100 Mg Capsule, 100 MG PO BID PRN for CONSTIPATION-1ST LINE Prescribed by: MIKEY DIAZ on 03/19/191938 Ferrous Sulfate 325 Mg Tablet, 325 MG PO DAILY, (Reported) Hydrocodone Bit/Acetaminophen 1 Tab Tab, 1 TAB PO Q4H PRN for PAIN-MODERATE Prescribed by: MIKEY DIAZ on 03/19/191938 Ibuprofen 600 Mg Tablet, 600 MG PO Q6HR Prescribed by: MIKEY DIAZ on 03/19/191938 Vit No.124/Iron/FA 1 Each Tablet, 1 EACH PO DAILY, (Reported) Valacyclovir HCl 500 Mg Tablet, 500 MG PO BID, (Reported) [Benzocaine/Menthol] 56 ML AEROSOL, 56 ML TP UD PRN for PAIN- SEE INSTRUCTIONS EXTERNAL USE ONLY Prescribed by: MIKEY DIAZ on 03/19/191938 Patient Home Medication List Home Medication List Reviewed: Yes OB - History Hx of Present Care: Yes Ultrasounds: Normal mid trimester US Obstetrical Complications: None Medical Complications: None Delivery History Hx Blood Disorders: No Adverse Rxn to Tranfusion: No Patient Past Medical History n/a Immunizations Hepatitis A: Yes Hepatitis B: Yes OB - Admission Exam Physical Exam Vitals: Vital Signs 01/02/21 01/03/21 20:00 02:35 Temp 36.8 Pulse 81 Resp 18 B/P (MAP) 109/55 (73) Pulse Ox 98 O2 Delivery Room Air HEENT: NCAT Heart: Rhythm Normal Lungs: Clear Abdomen: Gravid Extremities: Normal Reflexes: Normal Cervical Dilatation: 1cm Effacement: 75% Station: -1 Membranes: Intact Heart Rate: 130's Accelerations: Accelerations Present Decelerations: No Decelerations Short Term Variability: Present Penitentiary Variability: Average (6-25) Contractions on Admission: 6-10 Minutes Apart Intensity: Mild Nava Scoring Tool (Modified) Dilation (cm): 1-2cm (1) Effacement (%): 51-79% (2) Descent/Station: -1,0 (2) Cervix Consistency: Soft (2) Cervix Position: Anterior (2) Add 1 point for: Each previous vaginal delivery (1) Nava Score: 10 Labs Laboratory Tests Test 01/02/21 19:45 01/02/21 20:10 Range/Units Urine Color YELLOW Urine Clarity CLEAR Urine pH 7.0 5-9 Urine Specific [place] 1.015 L 1.016-1.022 Urine Protein NEGATIVE NEGATIVE Urine Glucose (UA) NEGATIVE NEGATIVE Urine Ketones NEGATIVE NEGATIVE Urine Nitrite NEGATIVE NEGATIVE Urine Bilirubin NEGATIVE NEGATIVE Urine Urobilinogen 0.2 < = 1.0 MG/DL Urine Leukocyte Esterase NEGATIVE NEGATIVE Urine RBC (Auto) NEGATIVE NEGATIVE Urine RBC NONE /HPF Urine WBC NONE /HPF Urine Squamous Epithelial Cells 0-2 /HPF Urine Crystals PRESENT H /LPF Urine Amorphous Sediment FEW MAE PHOSPHATE H /LPF Urine Bacteria TRACE /HPF Urine Casts NONE /LPF Urine Mucus SMALL H /LPF Urine Culture Indicated NO White Blood Count 13.9 H 4.3-11.0 10^3/uL Red Blood Count 3.85 3.80-5.11 10^6/uL Hemoglobin 11.6 11.5-16.0 g/dL Hematocrit 33 L 35-52 % Mean Corpuscular Volume 85 80-99 fL Mean Corpuscular Hemoglobin 30 25-34 pg Mean Corpuscular Hemoglobin Concent 36 32-36 g/dL Red Cell Distribution Width 13.0 10.0-14.5 % Platelet Count 238 130-400 10^3/uL Mean Platelet Volume 13.3 H 9.0-12.2 fL Immature Granulocyte % (Auto) 1 % Neutrophils (%) (Auto) 69 42-75 % Lymphocytes (%) (Auto) 21 12-44 % Monocytes (%) (Auto) 9 0-12 % Eosinophils (%) (Auto) 1 0-10 % Basophils (%) (Auto) 0 0-10 % Neutrophils # (Auto) 9.5 H 1.8-7.8 10^3/uL Lymphocytes # (Auto) 2.9 1.0-4.0 10^3/uL Monocytes # (Auto) 1.3 H 0.0-1.0 10^3/uL Eosinophils # (Auto) 0.1 0.0-0.3 10^3/uL Basophils # (Auto) 0.1 0.0-0.1 10^3/uL Immature Granulocyte # (Auto) 0.1 0.0-0.1 10^3/uL OB - Assessment/Plan/Diagnosis Assessment Assessment: induction of labor Admission Dx 25 yo @ 39 weeks Induction of labor- elective GBS neg Admission Status: Inpatient Order (span 2 midnights) Reason for Inpatient Admission: Induction of labor at 39 weeks Plan Plan: Induction Induction Method: per Misoprostol Protocol MIKEY DIAZ DO Jan 03, 2021 07:17
[2021-01-03] MEDS ORDERED: fentaNYL 2 mcg/ml BUPIVA 0.125 100 ML ONE (07:43)
[2021-01-03] MEDS ORDERED: fentaNYL INJ 100 MCG/2 ML AMP ONE (07:52)
[2021-01-03] MEDS ORDERED: BUPIVACAINE 0.25% 30 ML (SENSORCAINE) VIAL ONE (07:52)
[2021-01-03] MEDS ORDERED: OXYTOCIN PRE-MIX DRIP 500 ML IV ONE (08:33)
[2021-01-03] MEDS: EPIDURAL (fentaNYL 2 MCG/ML BUPIVA 0.125%)100 ML BAG EPI PRN ×2 (08:41→15:33)
[2021-01-03] MEDS ORDERED: METOCLOPRAMIDE INJ 10 MG/2 ML (REGLAN) IV PRN (08:45)
[2021-01-03] MEDS ORDERED: LACTATED RINGERS 1,000 ML IV SCH (08:45)
[2021-01-03] MEDS ORDERED: diphenhydrAMINE 50 MG/ML INJ (BENADRYL) IV PRN (08:45)
[2021-01-03] MEDS ORDERED: NALOXONE 0.4 MG/ML 1 ML (NARCAN) VIAL IV PRN ×2 (08:45)
[2021-01-03] MEDS ORDERED: ONDANSETRON 4 MG/2 ML (SDV) Z0FRAN IV PRN (08:45)
[2021-01-03] MEDS ORDERED: LIDOCAINE/EPI 2% 1:200,00 (XYLOCAINE) 20 ML VIAL ONE (15:42)
--- NOTE | 2021-01-03 16:40 | OB Labor & Delivery Record ---
L&D History Date of Service Date of Service: Jan 03, 2021 History Expected Date of Delivery: Jan 10, 2021 Gestational Age in Weeks: 39 Hx : 2 Hx Para: 1 Complications Events: Routine care Operative Indications (Cesarea: N/A-Vaginal Delivery Intrapartal Events: None L&D Stage1 Stage One Onset of Labor - Date: Jan 03, 2021 Monitors and Tracing Monitor Mode: External Heart Rate: 135 Monitor Decelerations: None Hazardous Materials Driver Variability: Average (6-10) Short Term Variability: Present Vital Signs VS - Last 72 Hours, by Label 01/02/21 01/02/21 01/03/21 01/03/21 20:00 20:30 02:35 07:30 Temp 36.5 36.8 36.8 Pulse 104 102 81 Resp 18 18 18 B/P (MAP) 119/75 (90) 109/55 (73) Pulse Ox 98 O2 Delivery Room Air Room Air Room Air 01/03/21 01/03/21 01/03/21 01/03/21 07:47 08:04 08:07 08:10 Pulse 80 86 88 90 Resp 18 18 18 18 B/P (MAP) 109/69 (82) 123/87 (99) 118/79 (92) 135/63 (87) Pulse Ox 99 99 O2 Delivery Room Air Room Air Room Air Room Air 01/03/21 01/03/21 01/03/21 01/03/21 08:13 08:16 08:19 08:22 Pulse 83 88 83 84 Resp 18 18 18 18 B/P (MAP) 120/56 (77) 115/72 (86) 116/70 (85) 113/60 (77) Pulse Ox 99 98 O2 Delivery Room Air Room Air Room Air Room Air 01/03/21 01/03/21 01/03/21 01/03/21 08:25 08:28 08:31 08:38 Pulse 88 85 79 80 Resp 18 18 18 18 B/P (MAP) 115/55 (75) 119/56 (77) 117/62 (80) 111/57 (75) Pulse Ox 98 98 98 97 O2 Delivery Room Air Room Air Room Air Room Air 01/03/21 01/03/21 01/03/21 01/03/21 08:43 08:48 08:54 08:58 Pulse 77 75 77 80 Resp 18 18 18 18 B/P (MAP) 112/58 (76) 114/56 (75) 113/65 (81) 110/66 (81) Pulse Ox 96 96 96 96 O2 Delivery Room Air Room Air Room Air Room Air 01/03/21 01/03/21 01/03/21 01/03/21 09:15 09:30 09:44 09:56 Temp 36.5 36.6 Pulse 74 73 78 Resp 18 18 18 B/P (MAP) 97/59 (72) 113/60 (77) 113/57 (75) Pulse Ox 97 97 98 O2 Delivery Room Air Room Air Room Air 01/03/21 01/03/21 01/03/21 01/03/21 09:59 10:14 10:30 10:43 Pulse 84 83 75 81 Resp 18 18 18 18 B/P (MAP) 120/66 (84) 105/59 (74) 105/56 (72) 113/59 (77) Pulse Ox 99 99 99 98 O2 Delivery Room Air Room Air Room Air Room Air 01/03/21 01/03/21 01/03/21 01/03/21 11:00 11:15 11:30 11:46 Pulse 75 75 78 83 Resp 18 18 18 18 B/P (MAP) 113/64 (80) 120/72 (88) 114/68 (83) 112/57 (75) Pulse Ox 97 98 99 99 O2 Delivery Room Air Room Air Room Air Room Air 01/03/21 01/03/21 01/03/21 01/03/21 12:00 12:14 12:28 12:44 Temp 37.0 Pulse 87 89 84 86 Resp 18 18 18 18 B/P (MAP) 113/67 (82) 115/57 (76) 112/59 (76) 105/57 (73) Pulse Ox 98 97 98 98 O2 Delivery Room Air Room Air Room Air Room Air 01/03/21 01/03/21 01/03/21 01/03/21 12:59 13:14 13:38 13:46 Temp 36.8 Pulse 75 75 66 80 Resp 18 18 18 18 B/P (MAP) 113/60 (77) 110/59 (76) 115/56 (75) 106/56 (73) Pulse Ox 98 98 98 98 O2 Delivery Room Air Room Air Room Air Room Air 01/03/21 01/03/21 01/03/21 14:00 14:14 14:30 Pulse 79 79 80 Resp 18 18 18 B/P (MAP) 114/68 (83) 114/57 (76) 116/56 (76) Pulse Ox 99 98 99 O2 Delivery Room Air Room Air Room Air Rupture of Membranes Amniotic Membrane Rupture Time: 0725 Amniotic Membrane Fluid Desc.: Clear Vaginal Bleeding Description: Normal Show Induction/Anesthesia Epidural Cath Placement - Time: 813 Progress/Notes Patient was brought in last night for IOL with cervical ripening using cytotec. She received two doses PO overnight, and this morning AROM was performed and pitocin was started. She received an epidural shortly after AROM, and with max dose of pitocin augmentation to 8 mu/min progressed to complete and + 2 station. L&D Stage2 Stage Two Stage II Date: Jan 03, 2021 Monitors and Tracing Monitor Mode: External Heart Rate: 135 Monitor Accelerations: Uniform Monitor Decelerations: Variable Long-Term Variability: Average (6-10) Short Term Variability: Present Position: Right Occiput Anterior Presentation: Vertex Cord Descript/Complications Cord Vessel Description: 3 Vessels Delivery Type Delivery Method: Spontaneous Vaginal Anterior Shoulder: Left Episiotomy/Perineal Laceration Laceraction(s)/Extensions: Yes Episiotomy Description: Perineal Extension/lac, 2nd degree Degree (describe repair) 2nd degree perineal laceration repaired using 3-0 and 2-0 vicryl suture in usual fashion. Condition of Infant Delivery 1 minute Comment: 8 5 minute Comment: 9 Notes Live male infant weight 7lbs 14 oz. Condition of Condition of : Living Exam: No Observed Abnormalities Resuscitation Resuscitation: N/A - Spontaneous Resp L&D Stage3 Stage Three Stage III Date: Jan 03, 2021 Pictocin Pitocin Administration mu/min: 6 Pitocin ml/hr: 6 Pitocin Administration Comment: 30 mu wide open after delivery of placenta Placenta Delivery Placenta Delivery: Spontaneous Delivery Summary Summary Estimated blood loss (mL): 300 Attending at delivery: Mikey Diaz DO Condition of Delivery Examined: Cervix Examined, Uterus Explored Post Hemorrhage: No Condition of Mother stable Condition of (s) stable MIKEY DIAZ DO Jan 03, 2021 16:40
--- NOTE | 2021-01-03 16:42 | Discharge Inst-Women's Service ---
Discharge Inst-Women's Serv Depart Medication/Instructions New, Converted or Re-Newed RX: RX on Chart Final Diagnosis PPD 1 NVD Problems Reviewed?: Yes Consults/Follow Up Additional Follow Up: Yes Orders/Referrals Dr. Diaz in 6 weeks Activity Activity: Activity as Tolerated Driving Instructions: No Driving for 1 Week NO SMOKING: NO SMOKING Nothing Inside Vagina: No Douching, No [place], No Tampons Diet Discharge Diet: No Restrictions Symptoms to Report to : Bleeding Excessive, Pain Increased, Fever Over 101 Degrees F, Vaginal Bleeding Increase, Questions/Concerns For Any Problems or Questions: Contact Your Physician MIKEY DIAZ DO Jan 03, 2021 16:42
[2021-01-03] MEDS ORDERED: DIBU30OI TOP (16:44)
[2021-01-03] MEDS ORDERED: ACHD5005 PO (16:44)
[2021-01-03] MEDS ORDERED: DCS100C PO (16:44)
[2021-01-03] MEDS ORDERED: IBUP-844 PO (16:44)
[2021-01-03] MEDS ORDERED: DIBUCAINE 1% OINTMENT 30 GM TUBE TOP PRN (16:45)
[2021-01-03] MEDS ORDERED: OXYTOCIN PRE-MIX DRIP 500 ML IV SCH (16:45)
[2021-01-03] MEDS ORDERED: TETANUS,DIPTH,PERTUSS P/F (BOOSTRIX) 0.5 ML VIAL IM ONE (16:45)
[2021-01-03] MEDS ORDERED: WITCH HAZEL(TUCKS) 40 EA JAR TOP PRN (16:45)
[2021-01-03] MEDS ORDERED: MEASLES,MUMPS,RUBELLA 1 EA INJ SQ ONE (16:45)
[2021-01-03] MEDS ORDERED: BENZOCAINE/MENTHOL (DERMOPLAST) 56 ML CAN TP PRN (16:45)
[2021-01-03] MEDS: IBUPROFEN 600 MG (MOTRIN) TAB PO SCH ×2 (16:56→23:37)
[2021-01-03] MEDS: DOCUSATE SODIUM 100 MG (COLACE) CAP PO SCH (20:22)
[2021-01-03] MEDS: HYDROcodone/APAP 5 MG/325 MG (LORTAB) TAB PO PRN (21:30)
[2021-01-03] MEDS: CATHETER FLUSH 10 ML SYR IV SCH ×2 (21:30→21:55)
[2021-01-04] MEDS: HYDROcodone/APAP 5 MG/325 MG (LORTAB) TAB PO PRN ×2 (01:20→05:47)
[2021-01-04 03:40] VITALS: BP 114/62
[2021-01-04] MEDS: IBUPROFEN 600 MG (MOTRIN) TAB PO SCH ×2 (05:48→12:14)
[2021-01-04 06:14] LABS: BASOPHILS # (AUTO) 0.1 10^3/uL (0.0-0.1); BASOPHILS % (AUTO) 0 % (0-10); EOSINOPHILS # (AUTO) 0.1 10^3/uL (0.0-0.3); EOSINOPHILS % (AUTO) 1 % (0-10); HEMATOCRIT 28 % (35-52); HEMOGLOBIN 9.6 g/dL (11.5-16.0); LYMPHOCYTES # (AUTO) 3.9 10^3/uL (1.0-4.0); LYMPHOCYTES % (AUTO) 22 % (12-44); MEAN CORPUSCULAR HEMOGLOBIN 31 pg (25-34); MEAN CORPUSCULAR HGB CONC 35 g/dL (32-36); MEAN CORPUSCULAR VOLUME 88 fL (80-99); MONOCYTES # (AUTO) 1.5 10^3/uL (0.0-1.0); MONOCYTES % (AUTO) 9 % (0-12); NEUTROPHILS # (AUTO) 11.9 10^3/uL (1.8-7.8); NEUTROPHILS % (AUTO) 68 % (42-75); PLATELET COUNT 196 10^3/uL (130-400); WHITE BLOOD COUNT 17.6 10^3/uL (4.3-11.0)
[2021-01-04] MEDS ORDERED: PRENATAL VITAMIN 1 EA TAB PO SCH (07:00)
[2021-01-04] MEDS ORDERED: FERROUS SULF 325 MG (IRON) TAB PO SCH (08:00)
--- NOTE | 2021-01-04 08:00 | Postpartum Progress Note ---
Note Note Day # 1 Subjective: Patient is without complaints. Ambulating, voiding. Tolerating a regular diet without nausea or vomiting. Normal lochia. Pain is well controlled with oral pain medications. Objective: Physical Exam: General - Alert and oriented, no apparent distress Abdomen - Soft, appropriately tender to palpation, non-distended, fundus firm at umbilicus Extremities - no edema, negative Chuck's bilaterally Assessment: PPD 1 NVD Acute blood loss anemia Plan: Routine care. Encourage breast feeding. Encourage ambulation. Ferrous sulfate supplementation. Plan for discharge today Vitals - Labs Vital Signs - I&O Vital Signs Date Time Temp Pulse Resp B/P (MAP) Pulse Ox O2 Delivery O2 Flow Rate FiO2 01/04/21 03:40 36.6 68 16 114/62 (79) 98 Room Air 01/03/21 23:35 36.9 75 18 116/61 (79) 99 Room Air 01/03/21 20:20 37.0 73 18 112/65 (81) 96 Room Air 01/03/21 20:20 96 Room Air 01/03/21 18:43 81 18 111/56 (74) Room Air 01/03/21 18:28 81 18 112/55 (74) Room Air 01/03/21 18:13 72 18 106/58 (74) Room Air 01/03/21 17:58 82 18 111/65 (80) Room Air 01/03/21 17:43 82 18 123/73 (90) Room Air 01/03/21 17:36 37.1 01/03/21 17:28 78 18 124/73 (90) Room Air 01/03/21 17:13 81 18 140/77 (98) Room Air 01/03/21 17:00 83 18 126/68 (87) Room Air 01/03/21 16:43 37.2 88 18 111/83 (92) Room Air 01/03/21 16:28 37.2 92 18 120/77 (91) Room Air 01/03/21 16:13 18 116/64 (81) Room Air 01/03/21 16:00 97 18 126/65 (85) 100 Room Air 01/03/21 15:51 37.2 01/03/21 15:45 89 18 111/66 (81) 100 Room Air 01/03/21 15:30 82 18 106/59 (75) 99 Room Air 01/03/21 15:15 36.9 84 18 111/67 (82) 99 Room Air 01/03/21 15:00 75 18 113/64 (80) 98 Room Air 01/03/21 14:46 79 18 112/71 (85) 97 Room Air 01/03/21 14:39 37.0 01/03/21 14:30 80 18 116/56 (76) 99 Room Air 01/03/21 14:14 79 18 114/57 (76) 98 Room Air 01/03/21 14:00 79 18 114/68 (83) 99 Room Air 01/03/21 13:46 80 18 106/56 (73) 98 Room Air 01/03/21 13:38 36.8 66 18 115/56 (75) 98 Room Air 01/03/21 13:14 75 18 110/59 (76) 98 Room Air 01/03/21 12:59 75 18 113/60 (77) 98 Room Air 01/03/21 12:44 86 18 105/57 (73) 98 Room Air 01/03/21 12:28 84 18 112/59 (76) 98 Room Air 01/03/21 12:14 89 18 115/57 (76) 97 Room Air 01/03/21 12:00 37.0 87 18 113/67 (82) 98 Room Air 01/03/21 11:46 83 18 112/57 (75) 99 Room Air 01/03/21 11:30 78 18 114/68 (83) 99 Room Air 01/03/21 11:15 75 18 120/72 (88) 98 Room Air 01/03/21 11:00 75 18 113/64 (80) 97 Room Air 01/03/21 10:43 81 18 113/59 (77) 98 Room Air 01/03/21 10:30 75 18 105/56 (72) 99 Room Air 01/03/21 10:14 83 18 105/59 (74) 99 Room Air 01/03/21 09:59 84 18 120/66 (84) 99 Room Air 01/03/21 09:56 36.6 4 09:44 78 18 113/57 (75) 98 Room Air 01/03/21 09:30 73 18 113/60 (77) 97 Room Air 01/03/21 09:15 36.5 74 18 97/59 (72) 97 Room Air 01/03/21 08:58 80 18 110/66 (81) 96 Room Air 01/03/21 08:54 77 18 113/65 (81) 96 Room Air 01/03/21 08:48 75 18 114/56 (75) 96 Room Air 01/03/21 08:43 77 18 112/58 (76) 96 Room Air 01/03/21 08:38 80 18 111/57 (75) 97 Room Air 01/03/21 08:31 79 18 117/62 (80) 98 Room Air 01/03/21 08:28 85 18 119/56 (77) 98 Room Air 01/03/21 08:25 88 18 115/55 (75) 98 Room Air 01/03/21 08:22 84 18 113/60 (77) Room Air 01/03/21 08:19 83 18 116/70 (85) 98 Room Air 01/03/21 08:16 88 18 115/72 (86) Room Air 01/03/21 08:13 83 18 120/56 (77) 99 Room Air 01/03/21 08:10 90 18 135/63 (87) 99 Room Air 01/03/21 08:07 88 18 118/79 (92) Room Air 01/03/21 08:04 86 18 123/87 (99) 99 Room Air I & O 01/04/21 07:00 Intake Total 4600 ml Balance 4600 ml Labs Laboratory Tests 01/04/21 05:21: White Blood Count 17.6H, Red Blood Count 3.13L, Hemoglobin 9.6L, Hematocrit 28L, Mean Corpuscular Volume 88, Mean Corpuscular Hemoglobin 31, Mean Corpuscular Hemoglobin Concent 35, Red Cell Distribution Width 13.3, Platelet Count 196, Mean Platelet Volume 14.0H, Immature Granulocyte % (Auto) 1, Neutrophils (%) (Auto) 68, Lymphocytes (%) (Auto) 22, Monocytes (%) (Auto) 9, Eosinophils (%) (Auto) 1, Basophils (%) (Auto) 0, Neutrophils # (Auto) 11.9H, Lymphocytes # (Auto) 3.9, Monocytes # (Auto) 1.5H, Eosinophils # (Auto) 0.1, Basophils # (Auto) 0.1, Immature Granulocyte # (Auto) 0.2H MIKEY DIAZ DO Jan 04, 2021 08:00
[2021-01-04 08:13] VITALS: BP 117/67
[2021-01-04] MEDS: DOCUSATE SODIUM 100 MG (COLACE) CAP PO SCH (08:13)
--- NOTE | 2021-01-04 08:20 | Anesthesia-Regional Post-Op ---
Regional Patient Condition Mental Status: Alert, Oriented x3 Circulation: Same as Pre-Op Headache: Absent Sensation: Full Recovery Motor Block: Absent Post Op Complications Complications None Follow Up Care/Instructions Patient Instructions None needed. Anesthesia/Patient Condition Patient is doing well, no complaints, stable vital signs, no apparent adverse anesthesia problems. NATHEN READ DO Jan 04, 2021 08:20
[2021-01-04 12:13] VITALS: BP 117/62
[2021-01-04 16:20] VITALS: BP 124/66
== END 2021-01-04 18:30 | disposition home or self-care (01) | DRG 806 ==
LOC: LDRP 19:37
PROVIDERS: ADMIT Obstetrics & Gynecology; ATTEND Obstetrics & Gynecology
PROC: 10E0XZZ Delivery of Products of Conception, External Approach (ICD-10-PCS; principal; 2021-01-03)
PROC: 0KQM0ZZ Repair Perineum Muscle, Open Approach (ICD-10-PCS; 2021-01-03)
PROC: 10907ZC Drainage of Amniotic Fluid, Therapeutic from Products of Conception, Via Natural or Artificial Opening (ICD-10-PCS; 2021-01-03)
DX: O70.1 Second degree perineal laceration during delivery (principal); D62 Acute posthemorrhagic anemia; Z37.0 Single live birth; Z3A.39 39 weeks gestation of pregnancy; O90.81 Anemia of the puerperium
CPT/HCPCS: 36415; 81000; 85025; 86850; 86900; 86901

== ENCOUNTER 2022-04-14 17:13 | Emergency (ER) | payer BC ==
[~2022-04-14] VITALS: Ht 162 cm; Wt 65.7 kg
[~2022-04-14 17:13] MED LIST changes: +DOCU-239 PO
[2022-04-14] MEDS ORDERED: ACHD5005 PO (18:09)
[2022-04-14] MEDS ORDERED: PENI500T PO (18:09)
--- NOTE | 2022-04-14 18:09 | ED EENT ---
History of Present Illness General Chief Complaint: Dental Problems/Pain Stated Complaint: RIGHT SIDED TOOTH PAIN Nursing Triage Note: PT PRESENTS TO ED WITH COMPLAINTS OF R UPPER TOOTH PAIN AFTER SHE CRACKED HER TOOTH YESTERDAY. PT REPORTS SHE CALLED HER DENTIST TODAY BUT SHE WAS UNABLE TO GET AHOLD OF ANYONE. Source: patient Exam Limitations: no limitations History of Present Illness Date Seen by Provider: Apr 14, 2022 Time Seen by Provider: 18:05 Initial Comments Patient is a 26-year-old female who presents the ED with right upper dental pain. Dental pain started yesterday after she fractured her tooth while eating. Has had continuous pain since. Took Tylenol ibuprofen without much improvement. She states she has poor teeth with several cavities. Denies of any facial swelling, redness, fever, chills, nausea, vomiting, diarrhea. Attempted to follow-up with a dentist but was not able to see patient today. Allergies and Home Medications Allergies Coded Allergies: No Known Drug Allergies (Unverified , 03/19/16) Patient Home Medication List Home Medication List Reviewed: Yes Dibucaine (Dibucaine) 30 Gm Oint, 0 GM TOP UD PRN for PAIN- SEE INSTRUCTIONS Prescribed by: MIKEY DIAZ on 01/03/21 1644 Docusate Sodium (Dok) 100 Mg Capsule, 100 MG PO BID PRN for CONSTIPATION-1ST LINE Prescribed by: MIKEY DIAZ on 01/03/21 1644 Hydrocodone Bit/Acetaminophen (HYDROcodone/APAP 5 MG/325 MG TAB) 1 Tab Tab, 1 EA PO Q4H PRN for PAIN-MODERATE (5-7) Prescribed by: MIKEY DIAZ on 01/03/21 1644 Hydrocodone/Acetaminophen (Hydrocodone-Acetamin 5-325 mg) 5 Mg-325 Mg Tablet, 1 TAB PO Q4H PRN for PAIN-MODERATE (5-7) Prescribed by: SELENA PFEIFFER on 04/14/22 180 Ibuprofen (Ibu) 600 Mg Tablet, 600 MG PO Q6HR Prescribed by: MIKEY DIAZ on 01/03/21 1644 Penicillin V Potassium (Penicillin V Potassium) 500 Mg Tablet, 500 MG PO QID Prescribed by: SELENA PFEIFFER on 04/14/22 180 Vit No.124/Iron/FA ( Vitamin Tablet) 1 Each Tablet, 1 EACH PO DAILY, (Reported) Entered as Reported by: CHERELLE MUNOZ on 12/09/18 3911 Review of Systems Review of Systems Constitutional: No chills, No diaphoresis, No malaise, No weakness Eyes: Denies Blurred Vision, Denies Drainage, Denies Decreased Acuity Ears: Denies Dizziness, Denies Pain Nose: denies clots, denies congestion, denies bloody discharge Mouth: denies clots; pain, swelling Throat: denies pain, denies swelling Respiratory: No dyspnea on exertion Gastrointestinal: No abdominal pain, No constipation, No nausea, No vomiting Musculoskeletal: No back pain, No gout, No joint pain Skin: No change in color, No change in hair/nails Neurological: Denies Anxiety, Denies Depressed All Other Systems Reviewed Negative Unless Noted: Yes Past Dyjvugz-Lhxfqs-Dfofec Hx Patient Social History Tobacco Use?: Yes Tobacco type used: Cigarettes Smoking Status: Current Everyday Smoker Substance use?: No Alcohol Use?: No Pt feels they are or have been: No Immunizations Up To Date PED Vaccines UTD: Yes Seasonal Allergies Seasonal Allergies: No Past Medical History Surgery/Hospitalization HX: PMH: DEPRESSION Surgeries: No Respiratory: No Cardiac: No Neurological: No Reproductive Disorders: No Sexually Transmitted Disease: Yes (HX CHLAMYDIA, HPV, HSV ) HIV/AIDS: No Genitourinary: No Gastrointestinal: No Musculoskeletal: No Endocrine: No HEENT: No Cancer: No Psychosocial: No Integumentary: No Blood Disorders: No Adverse Reaction/Blood Tranf: No Physical Exam Vital Signs Vital Signs - First Documented 04/14/22 17:59 Temp 36.0 Pulse 67 Resp 16 B/P (MAP) 122/83 (96) Pulse Ox 98 Height, Weight, BMI Height: 5'3.00" Weight: 173lbs. 0.0oz. [id number]; 25.00 BMI Method:Stated General Appearance: WD/WN, no apparent distress Eyes: bilateral eye normal inspection, bilateral eye PERRL, bilateral eye EOMI Ears: bilateral ear auricle normal, bilateral ear canal normal, bilateral ear TM normal Nose: normal inspection Mouth/Throat: other (Tenderness to right upper bicuspid tooth with Rose 3 fracture. Surrounding decay. 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 Decay noted. Several cavities noted. No function mass. No facial swelling or redness. Patient will be discharged with penicillin VK and pain medication. Continue with ibuprofen and will prescribe [place] for moderate pain. Dental outpatient follow-up. If any worsening symptoms such as facial swelling or redness to return back to ED for further evaluation. May continue with oral gel. Gargle salt water. Impression Primary Impression: Toothache Additional Impression: Tooth fracture Disposition: HOME, SELF-CARE Condition: Stable Departure-Patient Inst. Decision time for Depature: 18:08 Referrals: [facility] [place] (PCP/Family) Primary Care Physician Patient Instructions: Dental Pain Scripts Hydrocodone/Acetaminophen (Hydrocodone-Acetamin 5-325 mg) 5 Mg-325 Mg Tablet 1 TAB PO Q4H PRN for PAIN-MODERATE (5-7), #6 TAB Prov: KENNEDI GONZALEZ 04/14/22 Penicillin V Potassium (Penicillin V Potassium) 500 Mg Tablet 500 MG PO QID for 7 Days, #28 TAB Prov: KENNEDI GONZALEZ 04/14/22 KENNEDI GONZALEZ Apr 14, 2022 18:09
[2022-04-14 18:27] VITALS: BP 122/83
== END 2022-04-14 18:27 | disposition home or self-care (01) ==
LOC: EDUNIT# 17:13 → ER 17:15
DX: S02.5XXA Fracture of tooth (traumatic), initial encounter for closed fracture (principal); F17.210 Nicotine dependence, cigarettes, uncomplicated; Z28.310 Unvaccinated for COVID-19; X58.XXXA Exposure to other specified factors, initial encounter
CPT/HCPCS: 99282

== ENCOUNTER → 2022-10-21 | Outpatient (CLI) | payer BC ==
[~2022-10-21] MED LIST changes: +PENI500T PO
== END ==
LOC: LAB 07:42
PROVIDERS: ATTEND Obstetrics & Gynecology
DX: O20.0 Threatened abortion (principal); Z3A.00 Weeks of gestation of pregnancy not specified
CPT/HCPCS: 36415; 84702